=== PATIENT | male | born 1980 | race Caucasian/White ===

== ENCOUNTER 2020-01-19 19:31 | Observation (INO) ==
[2020-01-19] MEDS ORDERED: Isovue-370 500 ML BOTTLE IVP ONE (20:12)
[2020-01-19] MEDS ORDERED: Ketorolac 30 MG/ML VIAL IVP ONE (20:45)
[2020-01-19 21:04] LABS: Basophils % 0.2 %; Eosinophils # 0.3 K/mcL (0.0-0.6); Eosinophils % 2.2 %; Hematocrit 34.3 % (37.5-50.1); Hemoglobin 11.6 g/dL (12.9-16.9); Immature Granulocytes % 0.8 % (0-4); Lymphocytes # 1.5 K/mcL (0.6-4.6); Lymphocytes % 10.3 %; Mean Corpuscular HGB Conc 33.8 g/dL (31.6-35.5); Mean Corpuscular Hemoglobin 29.1 pg (28.0-33.3); Mean Corpuscular Volume 86.2 fL (83.0-100.0); Mean Platelet Volume 8.7 fL (9.4-12.4); Monocytes # 1.2 K/mcL (0.0-1.3); Monocytes % 8.5 %; Neutrophils # 11.2 K/mcL (1.6-8.9); Platelet Count 370 K/mcL (140-400); Red Blood Count 3.98 M/mcL (4.19-5.50); Red Cell Distribution Width 12.4 % (11.5-14.5); White Blood Count 14.4 K/mcL (4.3-11.1)
[2020-01-19 21:25] LABS: Alanine Aminotransferase 22 Units/L (7-52); Albumin 3.3 g/dL (3.5-5.7); Albumin/Globulin Ratio 0.9 (1.1-2.2); Alkaline Phosphatase 117 Units/L (34-104); Aspartate Amino Transferase 17 Units/L (13-39); BUN/Creatinine Ratio 18 (6-26); Bilirubin,Total 0.5 mg/dL (0.3-1.0); Blood Urea Nitrogen 18 mg/dL (6-20); Calcium 8.3 mg/dL (8.6-10.3); Carbon Dioxide 29 mEq/L (23-29); Chloride 100 mEq/L (98-107); Globulin 3.6 g/dL (2.4-3.5); Glucose 111 mg/dL (70-105); Osmolality,Calculated 291 (280-300); Potassium 3.2 mEq/L (3.5-5.1); Sodium 139 mEq/L (136-145); Total Protein 6.9 g/dL (6.4-8.9); eGFR For African Americans > 60 (> 60); eGFR For Non-African Americans > 60 (> 60)
[2020-01-19] MEDS ORDERED: Lidocaine -MPF 1% 2 ML VIAL INFILT ONE (23:34)
[2020-01-20] MEDS ORDERED: Piperacillin/Tazobactam 3.375 GM in Water for inj. (sterile) 20 ML IVP ONE (00:29)
[2020-01-20] MEDS ORDERED: Vancomycin 1,750 MG/517.5 ML IV.SOLN IVPB ONE (01:00)
[2020-01-20] MEDS ORDERED: Ondansetron 4 MG/2 ML VIAL IVP PRN (01:49)
[2020-01-20] MEDS ORDERED: Naloxone 0.4 MG/ML INJ IVP PRN (01:49)
[2020-01-20] MEDS: Ringers Solution, Lactated 1,000 ML IVC SCH ×2 (02:57→15:30)
[2020-01-20] MEDS: *HR* Heparin 5,000 UNIT/ML VIAL SQ SCH ×3 (05:52→21:11)
[2020-01-20 06:47] LABS: Basophils % 0.4 %; Eosinophils # 0.5 K/mcL (0.0-0.6); Eosinophils % 4.9 %; Immature Granulocytes % 0.6 % (0-4); Lymphocytes # 1.7 K/mcL (0.6-4.6); Lymphocytes % 16.2 %; Mean Corpuscular HGB Conc 33.3 g/dL (31.6-35.5); Mean Corpuscular Hemoglobin 29.3 pg (28.0-33.3); Mean Corpuscular Volume 87.8 fL (83.0-100.0); Mean Platelet Volume 8.8 fL (9.4-12.4); Monocytes # 0.9 K/mcL (0.0-1.3); Monocytes % 8.6 %; Neutrophils # 7.2 K/mcL (1.6-8.9); Platelet Count 326 K/mcL (140-400); Red Blood Count 3.76 M/mcL (4.19-5.50); Red Cell Distribution Width 12.4 % (11.5-14.5); Segmented Neutrophils % 69.3 %; White Blood Count 10.4 K/mcL (4.3-11.1)
[2020-01-20 07:07] LABS: Alanine Aminotransferase 18 Units/L (7-52); Albumin 2.8 g/dL (3.5-5.7); Albumin/Globulin Ratio 0.9 (1.1-2.2); Alkaline Phosphatase 86 Units/L (34-104); Aspartate Amino Transferase 13 Units/L (13-39); BUN/Creatinine Ratio 21 (6-26); Bilirubin,Total 0.4 mg/dL (0.3-1.0); Blood Urea Nitrogen 21 mg/dL (6-20); Calcium 8.1 mg/dL (8.6-10.3); Carbon Dioxide 29 mEq/L (23-29); Chloride 104 mEq/L (98-107); Globulin 3.2 g/dL (2.4-3.5); Glucose 127 mg/dL (70-105); Osmolality,Calculated 295 (280-300); Potassium 3.4 mEq/L (3.5-5.1); Sodium 140 mEq/L (136-145); eGFR For African Americans > 60 (> 60); eGFR For Non-African Americans > 60 (> 60)
[2020-01-20 07:08] LABS: INR 1.1; Prothrombin Time 12.9 Seconds (9.4-12.1)
[2020-01-20] MEDS: hydrOXYzine pamoate 25 MG CAPSULE PO SCH ×3 (09:07→21:10)
[2020-01-20] MEDS: Gabapentin 300 MG CAPSULE PO SCH ×3 (09:07→21:10)
[2020-01-20] MEDS: Baclofen 10 MG TABLET PO SCH ×3 (09:07→21:10)
[2020-01-20] MEDS: NALOXONE HCL SL SCH ×2 (09:08→10:47)
[2020-01-20] MEDS: BUPRENORPHINE HCL SL SCH ×2 (09:08→10:47)
[2020-01-20] MEDS: Vancomycin 1,250 MG/262.5 ML IV.SOLN IVPB SCH (15:33)
[2020-01-21 01:57] LABS: Basophils % 0.1 %; Eosinophils # 0.3 K/mcL (0.0-0.6); Eosinophils % 3.9 %; Hematocrit 26.7 % (37.5-50.1); Hemoglobin 9.1 g/dL (12.9-16.9); Lymphocytes # 1.6 K/mcL (0.6-4.6); Lymphocytes % 17.6 %; Mean Corpuscular HGB Conc 34.1 g/dL (31.6-35.5); Mean Corpuscular Hemoglobin 29.6 pg (28.0-33.3); Mean Platelet Volume 8.8 fL (9.4-12.4); Monocytes # 0.7 K/mcL (0.0-1.3); Monocytes % 8.4 %; Neutrophils # 6.1 K/mcL (1.6-8.9); Platelet Count 289 K/mcL (140-400); Red Blood Count 3.07 M/mcL (4.19-5.50); Red Cell Distribution Width 11.9 % (11.5-14.5); White Blood Count 8.8 K/mcL (4.3-11.1)
[2020-01-21 02:15] LABS: BUN/Creatinine Ratio 14 (6-26); Blood Urea Nitrogen 12 mg/dL (6-20); Calcium 8.2 mg/dL (8.6-10.3); Carbon Dioxide 29 mEq/L (23-29); Chloride 107 mEq/L (98-107); Glucose 139 mg/dL (70-105); Osmolality,Calculated 294 (280-300); Potassium 3.6 mEq/L (3.5-5.1); Sodium 141 mEq/L (136-145); eGFR For African Americans > 60 (> 60); eGFR For Non-African Americans > 60 (> 60)
[2020-01-21] MEDS: Vancomycin 1,250 MG/262.5 ML IV.SOLN IVPB SCH ×2 (02:57→15:28)
[2020-01-21] MEDS: *HR* Heparin 5,000 UNIT/ML VIAL SQ SCH ×4 (05:44→22:04)
[2020-01-21] MEDS: hydrOXYzine pamoate 25 MG CAPSULE PO SCH ×3 (08:29→21:56)
[2020-01-21] MEDS: Gabapentin 300 MG CAPSULE PO SCH ×3 (08:29→21:56)
[2020-01-21] MEDS: Baclofen 10 MG TABLET PO SCH ×3 (08:29→21:56)
[2020-01-21] MEDS: NALOXONE HCL SL SCH (08:30)
[2020-01-21] MEDS: BUPRENORPHINE HCL SL SCH (08:30)
[2020-01-21] MEDS: *HR* Buprenorphine HCl 8 MG TAB.SUBL SL SCH (10:30)
[2020-01-21] MEDS: *HR* Buprenorphine HCl 2 MG SUBLINGUAL TABLET SL SCH (10:30)
[2020-01-21] MEDS: Sulfamethoxazole/Trimeth DS 1 EACH TABLET PO SCH ×2 (17:29→22:00)
[2020-01-21] MEDS: Ketorolac 15 MG/ML VIAL IVP PRN (22:00)
[2020-01-22] MEDS: *HR* Heparin 5,000 UNIT/ML VIAL SQ SCH (04:39)
[2020-01-22] MEDS: *HR* Buprenorphine HCl 8 MG TAB.SUBL SL SCH ×2 (06:48→12:09)
[2020-01-22] MEDS: Gabapentin 300 MG CAPSULE PO SCH (08:16)
[2020-01-22] MEDS: Sulfamethoxazole/Trimeth DS 1 EACH TABLET PO SCH (08:16)
[2020-01-22] MEDS: hydrOXYzine pamoate 25 MG CAPSULE PO SCH (08:17)
[2020-01-22] MEDS: Baclofen 10 MG TABLET PO SCH (08:17)
[2020-01-22] MEDS: Ketorolac 15 MG/ML VIAL IVP PRN (08:27)
[2020-01-22] MEDS: *HR* Buprenorphine HCl 2 MG SUBLINGUAL TABLET SL SCH (12:08)
[2020-01-22 14:37] VITALS: BP 117/72
== END 2020-01-22 14:41 | disposition home or self-care (01) ==
LOC: EMEROOARM 19:31 → 3ANU 19:31
PROVIDERS: ADMIT Internal Medicine; ATTEND Internal Medicine